=== PATIENT | female | born 1970 | race Caucasian/White ===

== ENCOUNTER 2020-06-24 14:55 | Outpatient (CLI) | payer OTHER, BC, SELFPAY ==
--- NOTE | 2020-06-24 15:18 | MR_ITS ---
WS: [id number] MRI LUMBAR SPINE NONCONTRAST TECHNIQUE: Sagittal T1, T2 and STIR imaging. Axial T1 and T2 imaging. CLINICAL INFORMATION: INTERVERTEBRAL DISC DISORDERS W/ RADICULOPATHY, LUMBAR FINDINGS: Mild lumbar curve. No acute compression. No high-grade central canal stenosis. Mild annular bulging L 2-L3 and L3-L4 with slight effacement of the ventral thecal sac. L1-2: Normal L2-L3: Mild annular bulging. Mild facet arthropathy. Spinal canal and foramen are patent. L3-L4: Mild annular bulging with a tiny shallow central protrusion. Slight effacement of the ventral thecal sac. Mild right and no significant left foraminal narrowing. Mild facet arthropathy. L4-L5: Mild annular bulging with slight effacement of the ventral thecal sac. Far right foraminal pro trusion slightly impinges the exiting right L4 nerve root. Mild facet arthropathy. L5-S1: No significant disc bulging. Mild facet arthropathy. Spinal canal and foramen are patent Visualized pelvic bony structures: Normal. Paravertebral soft tissues: Normal. MR/MR lumbar spine wo con* [id number] IMPRESSION: 1. Mild lumbar curve. No acute compression. No significant central canal steno sis. 2. Tiny shallow central protrusion L3-4 with mild annular bulging. Slight effa cement of ventral thecal sac. Mild right L3-4 foraminal narrowing. 3. Far right lateral L4-5 foraminal protrusion contacts the far exiting right L4 nerve root. Correlation for right L4 nerve root symptoms. 4. Moderate facet arthropathy L5-S1.
== END 2020-06-24 14:56 | disposition home or self-care (01) ==
LOC: RADWPI 14:57
PROVIDERS: Family Provider Nurse Practitioner Family; PCP Nurse Practitioner Family; Visit Provider Anesthesiology Pain Medicine
DX: M51.16 Intervertebral disc disorders with radiculopathy, lumbar region (principal); M47.817 Spondylosis without myelopathy or radiculopathy, lumbosacral region
CPT/HCPCS: 72148

== ENCOUNTER → 2021-04-13 14:43 | Outpatient (BNVA) | payer OTHER, BC, SELFPAY | PROVIDERS: Family Provider Nurse Practitioner Family; PCP Nurse Practitioner Family; Visit Provider Podiatrist Foot & Ankle Surgery | DX: S82.831A Other fracture of upper and lower end of right fibula, initial encounter for closed fracture (principal); X58.XXXA Exposure to other specified factors, initial encounter | CPT/HCPCS: 73610 ==

== ENCOUNTER 2021-04-13 15:30 | Outpatient (CLI) | payer OTHER, BC, SELFPAY | END 2021-04-13 15:31 | disposition home or self-care (01) | LOC: SPT 15:30 | PROVIDERS: Family Provider Nurse Practitioner Family; PCP Nurse Practitioner Family; Visit Provider Podiatrist Foot & Ankle Surgery | DX: Z46.89 Encounter for fitting and adjustment of other specified devices (principal); S82.831D Other fracture of upper and lower end of right fibula, subsequent encounter for closed fracture with routine healing; X58.XXXD Exposure to other specified factors, subsequent encounter | CPT/HCPCS: 97760; L4361 ==

== ENCOUNTER → 2021-05-07 15:40 | Outpatient (BNVA) | payer OTHER, BC, SELFPAY | PROVIDERS: Family Provider Nurse Practitioner Family; PCP Nurse Practitioner Family; Visit Provider Podiatrist Foot & Ankle Surgery | DX: S82.831A Other fracture of upper and lower end of right fibula, initial encounter for closed fracture (principal); X58.XXXA Exposure to other specified factors, initial encounter | CPT/HCPCS: 73610 ==

== ENCOUNTER 2021-05-07 16:36 | Outpatient (CLI) | payer OTHER, BC, SELFPAY | END 2021-05-07 16:37 | disposition home or self-care (01) | LOC: SPT 16:36 | PROVIDERS: Family Provider Nurse Practitioner Family; PCP Nurse Practitioner Family; Visit Provider Podiatrist Foot & Ankle Surgery | DX: Z46.89 Encounter for fitting and adjustment of other specified devices (principal); S82.831D Other fracture of upper and lower end of right fibula, subsequent encounter for closed fracture with routine healing; X58.XXXD Exposure to other specified factors, subsequent encounter | CPT/HCPCS: 97760; L1902 ==

== ENCOUNTER → 2022-07-15 16:42 | Outpatient (BNVA) | payer OTHER, BC, SELFPAY | PROVIDERS: Family Provider Nurse Practitioner Family; PCP Registered Nurse; Visit Provider Nurse Practitioner Family | DX: M25.571 Pain in right ankle and joints of right foot (principal) | CPT/HCPCS: 73610 ==

== ENCOUNTER → 2022-07-26 14:36 | Outpatient (BNVA) | payer OTHER, BC, SELFPAY | PROVIDERS: Family Provider Nurse Practitioner Family; PCP Registered Nurse; Visit Provider Podiatrist Foot & Ankle Surgery | DX: S82.831A Other fracture of upper and lower end of right fibula, initial encounter for closed fracture (principal); X58.XXXA Exposure to other specified factors, initial encounter; S96.911A Strain of unspecified muscle and tendon at ankle and foot level, right foot, initial encounter | CPT/HCPCS: 73610 ==

== ENCOUNTER → 2022-08-05 10:29 | Outpatient (BNVA) | payer OTHER, BC, SELFPAY | PROVIDERS: Family Provider Nurse Practitioner Family; PCP Registered Nurse; Visit Provider Emergency Medicine | DX: R50.9 Fever, unspecified (principal); J98.8 Other specified respiratory disorders; B97.89 Other viral agents as the cause of diseases classified elsewhere | CPT/HCPCS: 87400 ==

== ENCOUNTER → 2022-08-23 15:20 | Outpatient (BNVA) | payer OTHER, BC, SELFPAY | PROVIDERS: Family Provider Nurse Practitioner Family; PCP Registered Nurse; Visit Provider Podiatrist Foot & Ankle Surgery | DX: S82.831D Other fracture of upper and lower end of right fibula, subsequent encounter for closed fracture with routine healing (principal); X58.XXXD Exposure to other specified factors, subsequent encounter | CPT/HCPCS: 73610 ==

== ENCOUNTER 2022-08-23 15:48 | Outpatient (CLI) | payer OTHER, BC, SELFPAY | END 2022-08-23 15:49 | disposition home or self-care (01) | LOC: SPT 15:48 | PROVIDERS: Family Provider Nurse Practitioner Family; PCP Registered Nurse; Visit Provider Podiatrist Foot & Ankle Surgery | DX: Z46.89 Encounter for fitting and adjustment of other specified devices (principal); S82.831D Other fracture of upper and lower end of right fibula, subsequent encounter for closed fracture with routine healing; X58.XXXD Exposure to other specified factors, subsequent encounter | CPT/HCPCS: 97760; L1902 ==

== ENCOUNTER → 2022-09-08 09:57 | Outpatient (BNVA) | payer OTHER, BC, SELFPAY | PROVIDERS: Family Provider Nurse Practitioner Family; PCP Registered Nurse; Visit Provider Podiatrist Foot & Ankle Surgery | DX: S82.831A Other fracture of upper and lower end of right fibula, initial encounter for closed fracture (principal); X58.XXXA Exposure to other specified factors, initial encounter | CPT/HCPCS: 73610 ==

== ENCOUNTER 2022-09-18 19:54 | Emergency (ER) | payer OTHER, BC, SELFPAY ==
[2022-09-18 19:57] VITALS: BP 131/81; PULSE 93; RESP 19; TEMP 36.8; O2SAT 96; BMI 25.5
--- NOTE | 2022-09-18 20:37 | W.ED.WOUNDLC ---
Documented by User: DARIUS Jenkins 09/18/22 21:26 HPI - Wound/Laceration General: Chief Complaint: Wound/Laceration Stated Complaint: right leg lac Time Seen by Provider: 09/18/22 20:04 History of Present Illness: Patient is a 52-year-old female who presents to the emergency department with a laceration to the posterior lateral aspect of the left thigh. Patient reports she was cleaning her son's bedroom and sat down on his bed. The son had left an open blade on his bed. Patient is unable to explain the size of the knife or how far it entered the skin. Patient is not up-to-date on tetanus Associated symptoms: Denies chills, fever(s), nausea or vomiting Review of Systems General: Reports: 10 or more systems reviewed and unremarkable except in HPI and below Const: Denies: fever(s), chills, change in appetite, change in weight, fatigue or malaise Eyes: Denies: change in vision, eye discomfort, eye discharge or eye redness ENMT: Denies: throat pain, enlarged tonsils, odynophagia, hoarseness, ear or mastoid pain, ear discharge, change in hearing, tinnitus, nasal discharge, nasal congestion, post nasal drip or sinus pain Card: Denies: chest pain, palpitations, irregular heart rhythm, edema, dyspnea on exertion, orthopnea or leg pain with exertion Resp: Denies: dyspnea, productive cough, non-productive cough, wheezing, stridor or chest congestion GI: Denies: abdominal pain, nausea, vomiting, dysphagia, diarrhea, constipation, bloating, GI cramping or hematochezia : Denies: flank pain, difficulty voiding, dysuria, urinary frequency, urinary urgency, urinary hesitancy, oliguria or hematuria Musc: Denies: neck pain, back pain, extremity pain, joint pain, joint swelling, joint redness, joint warmth or muscle weakness Skin/Breast: Denies: rash, pruritus, erythema, photosensitivity or new lesions Neuro: Denies: headache(s), numbness in extremities, weakness in extremities, sensory changes, lack of coordination, difficulty walking, frequent falls, dizziness, confusion, Slurred speech present, difficulty communicating thoughts, seizure-like activity or involuntary movements Endo: Denies: polyuria, polydipsia or tired all the time Homero/Lymph: Denies: easy bruising or easy bleeding PFSH ED PFSH: Medical History Essential hypertension Social History Smoking and tobacco status: never smoked Alcohol intake: never Adopted: No Caregiver/support person: No Lives independently: No Current occupational status: employed Sexually active: Yes Current gender identity: Female Physical Exam Narrative: EXAM NARRATIVE: Constitutional: No acute distress, afebrile and vital signs stable HEENT: Normocephalic, atraumatic, symmetrical facial expressions, EOM and PERRLA, patent nares Neck/C-spine: Supple and denies pain Chest: Symmetrical chest rise and fall Respiratory: Even and unlabored breaths, symmetrical chest rise GI: Abdomen is soft nontender. Back/pelvis: Nontender to palpation Extremities: Patient has a 2 cm laceration to the very lateral aspect of the left thigh No active bleeding Wound margins are clean Neuro: No focal changes Psych: Appropriate, cooperative Skin: See above Procedures Laceration Laceration 1: Site: lower extremity (Left lower extremity mid posterior lateral thigh) Side (If applicable): left Size (cm): 2 Description: linear Depth: simple, single layer Local Anesthetic: lidocaine 2% Amount of anesthesia used (mL): 3 Pre-repair: wound explored and irrigated extensively Size (cm): 3-0 (Nylon) Number of sutures: 4 Technique: simple, interrupted Course Vital Signs: Vital signs: Vital Signs Temperature 98.3 F 09/18/22 19:57 Pulse Rate 93 09/18/22 19:57 Respiratory Rate 19 H 09/18/22 19:57 Blood Pressure 131/81 09/18/22 19:57 Pulse Oximetry 96 09/18/22 19:57 Oxygen Delivery Me thod 09/18/22 19:57 MDM - Wound/Laceration Medical Decision Making Patient was evaluated in the emergency department for complaints of laceration to the thigh. Patient underwent XR imaging of the extremity to assess for foreign body. No foreign bodies noted Patient has not sustained any obvious vascular injury and sensation is intact throughout the extremity. The wound appears to be very superficial but into the adipose tissue. Patient's wound was cleansed and prepped after 3 mL of lidocaine was infiltrated. The wound bed was irrigated vigorously with approximately 40 cc. There is no tunneling. 4 simple interrupted sutures were placed without difficulty. Patient tolerated it well. Dry dressing placed Patient's been instructed on wound care. Patient to return for suture removal in 10 to 12 days. If she does not want to come back to the emergency department she can see her primary care office. Patient's been instructed to follow-up emergently if she develops redness warmth or drainage. All questions answered in detail. Lab Data Radiology Impressions Femur X-Ray 09/18/22 20:41 IMPRESSION: No acute findings. Discharge Plan Discharge Patient Disposition: Home Clinical Impression: Laceration Condition: Stable Prescriptions: No Action pregabalin [Lyrica] 25 mg capsule 25 mg PO DAILY tramadol 50 mg tablet 50 mg PO BID PRN hydrocodone-acetaminophen 10-250 mg tablet PO PRN methylprednisolone [Medrol (Roberto)] 4 mg tablets,dose pack 4 mg PO DAILY Qty: 21 0RF (DME) ASO to the right See Rx Instructions .Route .MEDSUPPLY Qty: 1 0RF Rx Instructions: As directed amoxicillin-pot clavulanate 875-125 mg tablet 1 tab PO BID 7 Days Qty: 14 0RF [id number] [Bromfed DM] 2-30-10 mg/5 mL syrup 7.5 ml PO Q6H PRN (Reason: cold symptoms) Qty: 160 0RF metoprolol tartrate 25 mg tablet 25 mg PO DAILY 90 Days Qty: 90 1RF Discharge Orders: Discharge ED (Routine); Ordered 09/18/22 Ordered By: Anyi Alva Referrals: Oneal Mo FNP [Primary Care Provider] - Discharge Diet: Advance as tolerated Discharge Activity: Resume usual activity Patient Instructions: Diphtheria/Acellular Pertussis/Tetanus Booster Vaccine (By injection), Care For Your Stitches (ED) Activity Restrictions/Additional Instructions: Please return to the emergency department for new concerning or worsening symptoms. Sutures out in 10 to 12 days You may shower and let soapy water run over the site but do not submerge it in water No creams, ointments, lotions to the wound If you develop any redness warmth or drainage please see your primary care provider or return to urgent care/emergency Coding Level of Care Code ED [employer] for [facility] Fwd Documented by User: Dhruv Ramirez DO 09/19/22 07:06 HPI - Wound/Laceration General: Chief Complaint: Wound/Laceration Stated Complaint: right leg lac Time Seen by Provider: 09/18/22 20:04 [facility] ED PFSH: Medical History Essential hypertension Social History Smoking and tobacco status: never smoked Alcohol intake: never Adopted: No Caregiver/support person: No Lives independently: No Current occupational status: employed Sexually active: Yes Current gender identity: Female Course Vital Signs: Vital signs: Vital Signs Temperature 98.3 F 09/18/22 19:57 Pulse Rate 93 09/18/22 19:57 Respiratory Rate 19 H 09/18/22 19:57 Blood Pressure 131/81 09/18/22 19:57 Pulse Oximetry 96 09/18/22 19:57 Oxygen Delivery Me thod 09/18/22 19:57 MDM - Wound/Laceration Medical Decision Making Patient was evaluated in the emergency department for complaints of laceration to the thigh. Patient underwent XR imaging of the extremity to assess for foreign body. No foreign bodies noted Patient has not sustained any obvious vascular injury and sensation is intact throughout the extremity. The wound appears to be very superficial but into the adipose tissue. Patient's wound was cleansed and prepped after 3 mL of lidocaine was infiltrated. The wound bed was irrigated vigorously with approximately 40 cc. There is no tunneling. 4 simple interrupted sutures were placed without difficulty. Patient tolerated it well. Dry dressing placed Patient's been instructed on wound care. Patient to return for suture removal in 10 to 12 days. If she does not want to come back to the emergency department she can see her primary care office. Patient's been instructed to follow-up emergently if she develops redness warmth or drainage. All questions answered in detail. Chart reviewed and patient discussed with midlevel. Agree with assessment and plan. Medical Records I reviewed the patient's medical records. Lab Data I reviewed the patient's lab results. Radiology Impressions Femur X-Ray 09/18/22 20:41 IMPRESSION: No acute findings. Discharge Plan Discharge Patient Disposition: Home Clinical Impression: Laceration Condition: Stable Prescriptions: No Action pregabalin [Lyrica] 25 mg capsule 25 mg PO DAILY tramadol 50 mg tablet 50 mg PO BID PRN hydrocodone-acetaminophen 10-250 mg tablet PO PRN methylprednisolone [Medrol (Roberto)] 4 mg tablets,dose pack 4 mg PO DAILY Qty: 21 0RF (DME) ASO to the right See Rx Instructions .Route .MEDSUPPLY Qty: 1 0RF Rx Instructions: As directed amoxicillin-pot clavulanate 875-125 mg tablet 1 tab PO BID 7 Days Qty: 14 0RF [id number] [Bromfed DM] 2-30-10 mg/5 mL syrup 7.5 ml PO Q6H PRN (Reason: cold symptoms) Qty: 160 0RF metoprolol tartrate 25 mg tablet 25 mg PO DAILY 90 Days Qty: 90 1RF Discharge Orders: Discharge ED (Routine); Ordered 09/18/22 Ordered By: Anyi Alva Referrals: Oneal Mo FNP [Primary Care Provider] - Discharge Diet: Advance as tolerated Discharge Activity: Resume usual activity Patient Instructions: Diphtheria/Acellular Pertussis/Tetanus Booster Vaccine (By injection), Care For Your Stitches (ED) Activity Restrictions/Additional Instructions: Please return to the emergency department for new concerning or worsening symptoms. Sutures out in 10 to 12 days You may shower and let soapy water run over the site but do not submerge it in water No creams, ointments, lotions to the wound If you develop any redness warmth or drainage please see your primary care provider or return to urgent care/emergency Coding Level of Care Code ED [employer] for Joshua Almaguer
--- NOTE | 2022-09-18 20:41 | XRR_ITS ---
PROCEDURE INFORMATION: Exam: XR Left Femur Exam date and time: 09/18/2022 8:58 PM Age: 52 years old Clinical indication: Injury or trauma; Other: Puncture/possible fb; Thigh or upper leg; Left; Foreign body involvement not specified; Additional info: Aspiration, check for foreign body TECHNIQUE: Imaging protocol: Radiologic exam of the Left femur. Views: 2 views. COMPARISON: No relevant prior studies available. FINDINGS: Bones/joints: No acute fracture. Soft tissues: No radiopaque foreign body. XR/XR femur LT min 2V* [id number] IMPRESSION: No acute findings.
[2022-09-18] MEDS: tetanus-diphtheria tox (adult) 0.5 mL SDV IM (21:23)
[2022-09-18] MEDS: lidocaine 2% INJ 20 mL INJECTION (21:35)
== END 2022-09-18 21:30 | disposition home or self-care (01) ==
PROVIDERS: Emergency Provider Nurse Practitioner; PCP Registered Nurse
DX: S71.112A Laceration without foreign body, left thigh, initial encounter (principal); W26.0XXA Contact with knife, initial encounter; I10 Essential (primary) hypertension; Z23 Encounter for immunization
CPT/HCPCS: 12001; 73552; 90471; 90714; 99283

== ENCOUNTER → 2022-09-27 15:33 | Outpatient (BNVA) | payer OTHER, BC, SELFPAY | PROVIDERS: PCP Registered Nurse; Visit Provider Podiatrist Foot & Ankle Surgery | DX: S82.831A Other fracture of upper and lower end of right fibula, initial encounter for closed fracture (principal); X58.XXXA Exposure to other specified factors, initial encounter | CPT/HCPCS: 73610 ==

== ENCOUNTER 2024-05-30 06:00 | Outpatient (CLI) | payer OTHER, BC, SELFPAY | END 2024-05-30 06:01 | disposition home or self-care (01) | LOC: RAD 06-18 10:41 | PROVIDERS: PCP Registered Nurse; Visit Provider Registered Nurse | DX: Z01.419 Encounter for gynecological examination (general) (routine) without abnormal findings (principal) | CPT/HCPCS: 87624 ==